=== PATIENT | female | born 1975 | race Two or more races ===

== ENCOUNTER 2016-04-17 10:13 | Emergency (ER) | payer MEDICAID ==
[2016-04-17] MEDS ORDERED: OXYMETAZOLINE HCL 0.05% 30 SPRAYS/BOT NS ONE (11:02)
[2016-04-17] MEDS ORDERED: ACETAMINOPHEN 500 MG TABLET ONE (11:02)
[2016-04-17] MEDS ORDERED: ONDANSETRON 4 MG ODT TAB ONE (11:02)
--- NOTE | 2016-04-17 11:47 | RAD ---
CHEST 2 VIEWS HISTORY: Fever, cough, shortness of breath. Frontal and lateral chest radiographs dated 04/17/2016. COMPARISON: 04/28/2014. FINDINGS: FOCAL AIRSPACE OPACITY: No gross airspace consolidation. Previously noted left lower lobe infiltrate has resolved. BRONCHOVASCULAR MARKINGS: Coarsened, peribronchial cuffing noted. PLEURAL EFFUSION: None. CARDIOMEDIASTINAL SILHOUETTE: Nonenlarged. PNEUMOTHORAX: None identified. OSSEOUS STRUCTURES: No grossly destructive lesions. IMPRESSION: No gross airspace consolidation. Coarsened bronchovascular markings, which can be seen in the setting of bronchitis, atypical/viral infection, or central airways disease.
== END 2016-04-17 12:43 | disposition home or self-care (01) ==
LOC: ED 10:13
DX: B34.9 Viral infection, unspecified (principal); E03.9 Hypothyroidism, unspecified; E78.5 Hyperlipidemia, unspecified; I10 Essential (primary) hypertension; J45.909 Unspecified asthma, uncomplicated
CPT/HCPCS: 87880; 71020; 99283 ×2; 93005; A9270 ×3